=== PATIENT | female | born 1955 | race Caucasian/White ===

== ENCOUNTER 2018-03-01 10:09 | Emergency (ER) | payer OTHER, MEDICAID ==
[~2018-03-01] VITALS: Ht 162.6 cm; Wt 59.0 kg
--- NOTE | 2018-03-01 10:09 | NUR ---
patient to bed#9 by paramedics
[2018-03-01 10:10] VITALS: BP 162/95
--- NOTE | 2018-03-01 10:21 | NUR ---
DR LEW AT BEDSIDE TO NE
--- NOTE | 2018-03-01 10:21 | NUR ---
Dr. Moss evaluating patient at bedside.
[2018-03-01] MEDS ORDERED: NACL 0.9% 1,000 ML IV ONE (10:39)
[2018-03-01] MEDS ORDERED: MULTIVITAMIN-12 10 ML, THIAMINE 100 MG, MAGNESIUM SULFATE 50% 2,000 MG, FOLIC ACID 5 MG... IV ONE ×5 (10:39)
[2018-03-01] MEDS ORDERED: diphenhydrAMINE 50 MG/ML VIAL IVP ONE (10:40)
[2018-03-01] MEDS ORDERED: MULTIVITAMIN-12 10 ML, THIAMINE 100 MG, FOLIC ACID 5 MG in NACL 0.9% 1,000 ML IV ONE (10:49)
--- NOTE | 2018-03-01 10:55 | NUR ---
PHLEB at bedside for blood draw.
--- NOTE | 2018-03-01 11:11 | NUR ---
lead based paint technician at bedside.
[2018-03-01 11:14] LABS: HEMATOCRIT 35.6 % (36-48); HEMOGLOBIN 12.1 g/dL (12.0-16.0); MEAN CORPUSCULAR HEMOGLOBIN 34 pg (27-31); MEAN CORPUSCULAR HGB CONC 34 g/dL (33-37); MEAN CORPUSCULAR VOLUME 98.7 fL (80-94); PLATELET COUNT (AUTO) 227 K/uL (140-450); RED BLOOD CELL COUNT(AUTO) 3.61 MIL/uL (4.20-5.40); RED CELL DISTRIBUTION WIDTH 14.3 % (11.6-13.7); WHITE BLOOD COUNT (AUTO) 5.4 K/uL (4.8-10.8)
[2018-03-01 11:15] LABS: BASOPHILS # (AUTO) 0.2 K/uL (0.00-0.22); BASOPHILS % (AUTO) 2.9 % (0.0-2.0); EOSINOPHILS % (AUTO) 0.5 % (0.0-4.0); LYMPHOCYTES # (AUTO) 1.9 K/uL (2.5-16.5); MONOCYTES # (AUTO) 0.7 K/uL (0.8-1.0); MONOCYTES % (AUTO) 12.9 % (1.7-9.3); NEUTROPHILS # (AUTO) 2.6 K/uL (1.8-7.7); NEUTROPHILS % (AUTO) 48.7 % (42.2-75.2)
[2018-03-01 11:19] LABS: ANION GAP 15.8 (8-16); POTASSIUM 3.8 mmol/L (3.5-5.1)
[2018-03-01 11:34] LABS: ALBUMIN 4.7 g/dL (3.4-5.0); TOTAL BILIRUBIN 0.4 mg/dL (0.0-1.0)
--- NOTE | 2018-03-01 12:03 | NUR ---
PT WITH EYES CLOSED, IN NAD. RESP EVEN AND UNLABORED. IV FLUIDS INFUSING WELL. VSS
[2018-03-01 12:28] LABS: APPEARANCE,URINE CLEAR (CLEAR); BILIRUBIN,URINE NEGATIVE (NEGATIVE); BLOOD, URINE NEGATIVE (NEGATIVE); COLOR,URINE YELLOW (YELLOW); LEUKOCYTE ESTERASE ,URINE NEGATIVE (NEGATIVE); NITRITE, URINE NEGATIVE (NEGATIVE); UGLUCOSE NEGATIVE (NEGATIVE)
[2018-03-01 13:02] LABS: BARBITURATE, URINE NEG. ng/ml (NEG <=200); BENZODIAZEPINE, URINE NEG. ng/mL (NEG <=200); CANNABINOID, URINE NEG. ng/mL (NEG <=50); OPIATE, URINE NEG. ng/mL (NEG <=2000); PHENCYCLIDINE SCREEN,URINE NEG. ng/mL (NEG <=25)
[2018-03-01 13:14] LABS: COCAINE, URINE NEG. ng/mL (NEG <=300)
--- NOTE | 2018-03-01 13:19 | NUR ---
NO ACUTE CHNAGE IN CONDITON, PT IN NAD. RESP EVEN AND UNLABORED. VSS. WAIITNG FOR DISPISTION
--- NOTE | 2018-03-01 14:09 | NUR ---
PT AMBULATED TO BATHROOM WITH STEADY GAIT, PT INFORMED OF PENDING DISCHARGE, STATES " I DONT WANT TO GO, ITS TOO HOT OUT THERE" REQUESTING [employer] V[employer]CHER. INFORMED THAT WE CAN ONLY GIVE BUS PASS AT THIS TIME. NOTIFIED
--- NOTE | 2018-03-01 14:45 | NUR ---
PT VERBALIZED UNDERSTANDING DC INSTRUCTIONS---ADVICED TO STOP ABUSING ALCOHOL. HOMELESS RESOURCES SHEET HANDED TO PT. BUS PASS REQUESTED BY PT AND PROVIDED BY HOUSE SUP. PT AMBULATORY TO WHEELCHAIR STEADY GAIT--PT REFUSED HELP TO PLACE SOCKS AND SHOES; STATED "I CAN DO IT MY DAMN SELF". Patient discharged with v/s stable. Written and verbal after care instructions given and explained. Patient verbalized understanding. Wheel Chair Assisted with steady gait. All questions addressed prior to discharge. Advised to follow up with PMD.
[2018-03-01 14:48] VITALS: BP 149/73
== END 2018-03-01 14:35 | disposition home or self-care (01) ==
LOC: MED 10:09
DX: F10.229 Alcohol dependence with intoxication, unspecified (principal); S42.302P Unspecified fracture of shaft of humerus, left arm, subsequent encounter for fracture with malunion; X58.XXXD Exposure to other specified factors, subsequent encounter; Z59.0 Homelessness
CPT/HCPCS: 36415; 71045; 73060; 80053; 80305; 81003; 82550; 85025; 96365; 96366; 99285; A9153; G0482; J3411; J3490; J7030; Q0092; J1200